=== PATIENT | female | born 1980 | race Two or more races ===

== ENCOUNTER 2017-08-25 18:21 | Inpatient (IN) | payer OTHER, SELFPAY ==
[~2017-08-25] VITALS: Ht 157.5 cm; Wt 100.2 kg
[2017-08-25] MEDS ORDERED: DEXAMETHASONE 4 MG/ML, 1ML IM ONE (19:00)
[2017-08-25] MEDS ORDERED: MORPHINE SULFATE 4 MG/ML, 1ML ONE ×2 (19:17→22:13)
[2017-08-25] MEDS ORDERED: KETOROLAC 30 MG/1 ML ONE (19:17)
[2017-08-25] MEDS ORDERED: DEXAMETHASONE 4 MG/ML, 5ML ONE (19:17)
[2017-08-25] MEDS ORDERED: CEFTRIAXONE PMX 1GM/50ML 50 ML ONE (19:20)
[2017-08-25 19:27] LABS: MEAN CORPUSCULAR HGB CONC 33.1 g/dL (32.4-35.8); MEAN CORPUSCULAR VOLUME 84.6 fL (80-100); PLATELET COUNT 299 x10^3/uL (130-400); RED BLOOD COUNT 4.95 x10^6/uL (3.82-5.3); RED CELL DISTRIBUTION WIDTH 15.1 % (9.6-15.2)
[2017-08-25] MEDS ORDERED: KETOROLAC 30 MG/1 ML IVPush ONE (19:30)
[2017-08-25] MEDS ORDERED: DEXAMETHASONE 4 MG/ML, 1ML IV ONE (19:30)
[2017-08-25] MEDS ORDERED: SODIUM CHLORIDE 0.9% 1,000ML IVBOLUS ONE ×2 (19:30→20:30)
[2017-08-25] MEDS ORDERED: CEFTRIAXONE PMX 1GM/50ML 50 ML IVPB ONE (19:30)
[2017-08-25] MEDS ORDERED: SODIUM CHLORIDE FLUSH 10ML SYR IVF ONE ×2 (19:30→20:30)
[2017-08-25 19:35] LABS: ALBUMIN 2.9 g/dL (3.4-5.0); ANION GAP 10 mmol/L (5-15); CHLORIDE 106 mmol/L (98-107)
[2017-08-25 19:38] LABS: CREATININE 0.74 mg/dL (0.55-1.02)
[2017-08-25 19:48] LABS: MD YES
[2017-08-25] MEDS: MORPHINE SULFATE 4 MG/ML, 1ML IVPush PRN ×2 (19:48→22:18)
[2017-08-25 19:52] LABS: BANDS%(MANUAL) 7 % (0-7); BASOS#(MANUAL) 0.21 x10^3/uL (0-0.1); BASOS% (MANUAL) 1 % (0-1); EOS#(MANUAL) 0.21 x10^3/uL (0.0-0.4); EOS% (MANUAL) 1 % (1-7); LYMPH#(MANUAL) 1.93 x10^3/uL (1-3.4); LYMPHS% (MANUAL) 9 % (22-44); MONOS#(MANUAL) 1.07 x10^3/uL (0.3-2.7); MONOS% (MANUAL) 5 % (2-9); SEGS% (MANUAL) 78 % (42-75)
[2017-08-25 19:53] LABS: <PLATELET ESTIMATE> ADEQUATE; <PLT MORPHOLOGY> NORMAL PLT MORPH; <RBC MORPHOLOGY> NORMAL
[2017-08-25] MEDS ORDERED: OMNIPAQUE 350 MG/ML, 100ML BOTTLE ONE (20:06)
[2017-08-25] MEDS ORDERED: BENZOCAINE AEROSOL SPRAY 20%, 60ML ONE (20:49)
[2017-08-25] MEDS ORDERED: LIDOCAINE 1%-EPI 1:100K, 30ML INFIL ONE (21:00)
[2017-08-25] MEDS ORDERED: POLYETHYLENE GLYCOL 17 GM PACKET PO PRN (23:00)
[2017-08-25] MEDS ORDERED: ONDANSETRON 2MG/ML, 2ML IVPush PRN (23:00)
[2017-08-25] MEDS ORDERED: BISACODYL 10 MG SUPP PR PRN (23:00)
[2017-08-25] MEDS: AMPICILLIN/SULBACTAM 3 GM in SODIUM CHLORIDE 0.9% 100 ML IV SCH (23:30)
[2017-08-25] MEDS: NS + 20MEQ KCL 1,000 ML IV SCH (23:31)
[2017-08-25 23:59] VITALS: BP 129/83
[2017-08-26 00:19] VITALS: BP 121/80
[2017-08-26] MEDS ORDERED: MAGNESIUM SULFATE PMX 2GM/50ML 50 ML IV ONE (01:00)
[2017-08-26] MEDS: morphine SULFATE 10 MG/ML, 1ML IVPush PRN ×5 (01:49→23:46)
[2017-08-26 04:32] LABS: MEAN CORPUSCULAR HEMOGLOBIN 27.7 pg (27.0-34.8); MEAN CORPUSCULAR VOLUME 84.1 fL (80-100); MEAN PLATELET VOLUME 7.9 fL (7.4-10.4); PLATELET COUNT 295 x10^3/uL (130-400); RED BLOOD COUNT 4.64 x10^6/uL (3.82-5.3); RED CELL DISTRIBUTION WIDTH 14.9 % (9.6-15.2)
[2017-08-26 04:43] LABS: ALBUMIN 2.6 g/dL (3.4-5.0); ANION GAP 9 mmol/L (5-15); CALCIUM 8.2 mg/dL (8.5-10.1); CHLORIDE 112 mmol/L (98-107)
[2017-08-26 04:47] LABS: ALANINE AMINOTRANSFERASE 41 U/L (12-78); ALKALINE PHOSPHATASE 113 U/L (45-117); BILIRUBIN,TOTAL 0.3 mg/dL (0.2-1.0); TOTAL PROTEIN 7.9 g/dL (6.4-8.2)
[2017-08-26] MEDS: AMPICILLIN/SULBACTAM 3 GM in SODIUM CHLORIDE 0.9% 100 ML IV SCH ×4 (05:11→23:16)
[2017-08-26 05:36] LABS: MD YES
[2017-08-26 05:37] LABS: BAND#(MANUAL) 1.51 x10^3/uL; BANDS%(MANUAL) 7 % (0-7); LYMPH#(MANUAL) 1.51 x10^3/uL (1-3.4); LYMPHS% (MANUAL) 7 % (22-44); MONOS#(MANUAL) 0.22 x10^3/uL (0.3-2.7); MONOS% (MANUAL) 1 % (2-9); SEG#(MANUAL) 18.36 x10^3/uL (1.8-6.8); SEGS% (MANUAL) 85 % (42-75)
[2017-08-26 05:38] LABS: <PLATELET ESTIMATE> ADEQUATE; <PLT MORPHOLOGY> NORMAL PLT MORPH; <RBC MORPHOLOGY> NORMAL
[2017-08-26] MEDS ORDERED: VANCOMYCIN PMX 1GM/200ML 200 ML IV ONE (08:00)
[2017-08-26] MEDS ORDERED: VANCOMYCIN PER PHARMACY MC PRN (08:00)
[2017-08-26 08:12] VITALS: BP 119/81
[2017-08-26] MEDS ORDERED: PHARMACOKINETIC CONSULTATION MC ONE (08:30)
[2017-08-26] MEDS ORDERED: PHARMACOKINETIC MONITORING MC PRN (08:30)
[2017-08-26] MEDS: SENNA/DOCUSATE TABLET PO SCH (08:31)
[2017-08-26] MEDS: VANCOMYCIN 2,000 MG in SODIUM CHLORIDE 0.9% 500 ML IV SCH ×2 (08:49→20:40)
[2017-08-26 13:28] VITALS: BP 125/80
[2017-08-26] MEDS: NS + 20MEQ KCL 1,000 ML IV SCH ×2 (15:15→23:00)
[2017-08-26 18:35] VITALS: BP 111/77
[2017-08-26] MEDS: CALCIUM CARBONATE 500 MG TAB.CHEW PO PRN (23:16)
[2017-08-27 00:21] VITALS: BP 129/75
[2017-08-27] MEDS: morphine SULFATE 10 MG/ML, 1ML IVPush PRN ×2 (04:45→06:52)
[2017-08-27] MEDS: AMPICILLIN/SULBACTAM 3 GM in SODIUM CHLORIDE 0.9% 100 ML IV SCH ×4 (04:46→22:44)
[2017-08-27 05:00] LABS: MEAN CORPUSCULAR HEMOGLOBIN 27.9 pg (27.0-34.8); MEAN CORPUSCULAR VOLUME 84.6 fL (80-100); MEAN PLATELET VOLUME 7.7 fL (7.4-10.4); PLATELET COUNT 297 x10^3/uL (130-400); RED BLOOD COUNT 4.38 x10^6/uL (3.82-5.3); RED CELL DISTRIBUTION WIDTH 15.2 % (9.6-15.2)
[2017-08-27 05:10] LABS: ALBUMIN 2.3 g/dL (3.4-5.0); ANION GAP 6 mmol/L (5-15); CALCIUM 7.4 mg/dL (8.5-10.1); CHLORIDE 110 mmol/L (98-107)
[2017-08-27 05:14] LABS: ALANINE AMINOTRANSFERASE 119 U/L (12-78); ALKALINE PHOSPHATASE 101 U/L (45-117); BILIRUBIN,TOTAL 0.3 mg/dL (0.2-1.0); CREATININE 0.47 mg/dL (0.55-1.02); TOTAL PROTEIN 7.1 g/dL (6.4-8.2)
[2017-08-27 05:41] LABS: MD YES
[2017-08-27 05:43] LABS: <PLATELET ESTIMATE> ADEQUATE; <PLT MORPHOLOGY> NORMAL PLT MORPH; <RBC MORPHOLOGY> NORMAL; BAND#(MANUAL) 0.14 x10^3/uL; BANDS%(MANUAL) 1 % (0-7); EOS#(MANUAL) 0.14 x10^3/uL (0.0-0.4); EOS% (MANUAL) 1 % (1-7); LYMPH#(MANUAL) 2.48 x10^3/uL (1-3.4); LYMPHS% (MANUAL) 18 % (22-44); MONOS#(MANUAL) 1.24 x10^3/uL (0.3-2.7); MONOS% (MANUAL) 9 % (2-9); MYELOCYTES# (MANUAL) 0.14 x10^3/uL (0-0); MYELOCYTES% (MANUAL) 1 % (0-0); SEG#(MANUAL) 9.66 x10^3/uL (1.8-6.8); SEGS% (MANUAL) 70 % (42-75)
[2017-08-27] MEDS: NS + 20MEQ KCL 1,000 ML IV SCH ×2 (06:52→22:35)
[2017-08-27] MEDS: SENNA/DOCUSATE TABLET PO SCH (08:07)
[2017-08-27 08:18] VITALS: BP 130/84
[2017-08-27] MEDS: VANCOMYCIN 2,000 MG in SODIUM CHLORIDE 0.9% 500 ML IV SCH ×2 (08:56→20:31)
[2017-08-27] MEDS: KETOROLAC 30 MG/1 ML IVPush SCH ×3 (09:45→20:31)
[2017-08-27] MEDS ORDERED: POTASSIUM CHLORIDE 20 MEQ TAB.ER.PRT PO ONE (11:30)
[2017-08-27] MEDS ORDERED: MAGNESIUM SULFATE PMX 2GM/50ML 50 ML IV ONE (11:30)
[2017-08-27 15:52] VITALS: BP 120/78
[2017-08-27] MEDS: POTASSIUM PHOSPHATE 44 MEQ in SODIUM CHLORIDE 0.9% 500 ML IV SCH (16:45)
[2017-08-27 18:31] VITALS: BP 127/82
[2017-08-27] MEDS: ACETAMINOPHEN 325 MG TABLET PO PRN (20:47)
[2017-08-27] MEDS: GUAIFENESIN/DM 200-20MG, 10ML UDC PO PRN (20:47)
[2017-08-28 00:59] VITALS: BP 132/84
[2017-08-28] MEDS: KETOROLAC 30 MG/1 ML IVPush SCH ×4 (04:59→20:40)
[2017-08-28] MEDS: AMPICILLIN/SULBACTAM 3 GM in SODIUM CHLORIDE 0.9% 100 ML IV SCH ×3 (05:04→17:45)
[2017-08-28 07:16] VITALS: BP 132/86
[2017-08-28 08:46] LABS: ALANINE AMINOTRANSFERASE 102 U/L (12-78); ALBUMIN 2.6 g/dL (3.4-5.0); ANION GAP 9 mmol/L (5-15); CALCIUM 8.6 mg/dL (8.5-10.1); CHLORIDE 108 mmol/L (98-107); CREATININE 0.51 mg/dL (0.55-1.02)
[2017-08-28 08:48] LABS: ALKALINE PHOSPHATASE 93 U/L (45-117); BILIRUBIN,TOTAL 0.2 mg/dL (0.2-1.0); TOTAL PROTEIN 7.5 g/dL (6.4-8.2)
[2017-08-28 08:54] LABS: BASOPHILS # (AUTO) 0.04 x10^3/uL (0-0.1); BASOPHILS % (AUTO) 0 % (0-1); EOSINOPHILS # (AUTO) 0.26 x10^3/uL (0-0.4); EOSINOPHILS % (AUTO) 3 % (1-7); LYMPHOCYTES # (AUTO) 2.64 x10^3/uL (1-3.4); LYMPHOCYTES % (AUTO) 30 % (22-44); MD NO; MEAN CORPUSCULAR HEMOGLOBIN 27.9 pg (27.0-34.8); MEAN CORPUSCULAR HGB CONC 33.7 g/dL (32.4-35.8); MEAN CORPUSCULAR VOLUME 82.8 fL (80-100); MEAN PLATELET VOLUME 7.5 fL (7.4-10.4); MONOCYTES # (AUTO) 0.52 x10^3/uL (0.2-0.8); MONOCYTES % (AUTO) 6 % (2-9); NEUTROPHILS # (AUTO) 5.45 x10^3/uL (1.8-6.8); NEUTROPHILS % (AUTO) 61 % (42-75); PLATELET COUNT 366 x10^3/uL (130-400); RED BLOOD COUNT 4.95 x10^6/uL (3.82-5.3); RED CELL DISTRIBUTION WIDTH 15.3 % (9.6-15.2)
[2017-08-28] MEDS: SENNA/DOCUSATE TABLET PO SCH (09:00)
[2017-08-28] MEDS: VANCOMYCIN 1,500 MG in SODIUM CHLORIDE 0.9% 250 ML IV SCH ×2 (10:13→18:41)
[2017-08-28] MEDS: NS + 20MEQ KCL 1,000 ML IV SCH (11:55)
[2017-08-28] MEDS: CALCIUM CARBONATE 500 MG TAB.CHEW PO PRN (12:22)
[2017-08-28 13:19] VITALS: BP 115/76
[2017-08-28] MEDS: POTASSIUM PHOSPHATE 44 MEQ in SODIUM CHLORIDE 0.9% 500 ML IV SCH (13:28)
[2017-08-28 19:01] VITALS: BP 114/76
[2017-08-29] MEDS: GUAIFENESIN/DM 200-20MG, 10ML UDC PO PRN ×2 (00:26→09:07)
[2017-08-29] MEDS: ACETAMINOPHEN 325 MG TABLET PO PRN (00:26)
[2017-08-29] MEDS: AMPICILLIN/SULBACTAM 3 GM in SODIUM CHLORIDE 0.9% 100 ML IV SCH ×3 (00:27→12:20)
[2017-08-29] MEDS: NS + 20MEQ KCL 1,000 ML IV SCH (00:46)
[2017-08-29] MEDS: KETOROLAC 30 MG/1 ML IVPush SCH ×2 (02:49→08:30)
[2017-08-29] MEDS: VANCOMYCIN 1,500 MG in SODIUM CHLORIDE 0.9% 250 ML IV SCH ×2 (02:49→09:13)
[2017-08-29 02:56] VITALS: BP 132/85
[2017-08-29 08:28] VITALS: BP 143/80
[2017-08-29 08:39] LABS: ANION GAP 8 mmol/L (5-15); CALCIUM 7.8 mg/dL (8.5-10.1); CHLORIDE 107 mmol/L (98-107)
[2017-08-29 08:40] LABS: CREATININE 0.48 mg/dL (0.55-1.02)
[2017-08-29] MEDS: SENNA/DOCUSATE TABLET PO SCH (09:08)
[2017-08-29] MEDS ORDERED: KETO10TA PO (11:02)
[2017-08-29] MEDS ORDERED: LACT1CAP24 PO (11:02)
[2017-08-29] MEDS ORDERED: LEVO750T26 PO (11:02)
[2017-08-29] MEDS ORDERED: PNEUMOCOCCAL 23 VACCINE IM-VACC ONE (12:00)
== END 2017-08-29 13:21 | disposition home or self-care (01) | DRG 871 ==
LOC: ED 20:52 → EDIP 22:10 → 3NW 23:11
PROVIDERS: ADMIT Hospitalist; ATTEND Internal Medicine
DX: A41.9 Sepsis, unspecified organism (principal); E43 Unspecified severe protein-calorie malnutrition; J69.0 Pneumonitis due to inhalation of food and vomit; J15.9 Unspecified bacterial pneumonia; J36 Peritonsillar abscess; Z68.41 Body mass index [BMI] 40.0-44.9, adult; E66.01 Morbid (severe) obesity due to excess calories; E87.6 Hypokalemia; E83.39 Other disorders of phosphorus metabolism; Z79.899 Other long term (current) drug therapy
CPT/HCPCS: 36415; 70491; 71045; 80048; 80053; 80202; 82040; 83735; 84100; 84145; 85025; 86308; 87040; 87070; 87081; 87205; 87880; 90732; 96361; 96365; 96375; 96376; J0295; J0696; J1100; J1885; J3370; J3480; Q9967; J2270; J3475; J7030; J7040; J7050